=== PATIENT | female | born 1955 | race Caucasian/White ===

== ENCOUNTER 2018-01-25 08:24 | Day surgery (SDC) | payer OTHER ==
[~2018-01-25 08:24] MED LIST: LISINOPRIL10 MG PO; SYNTHROID100 MCG PO; ZOCOR5 MG PO
== END 2018-01-26 12:50 | disposition home or self-care (01) ==
LOC: CIR.AMB 08:24
DX: N95.0 Postmenopausal bleeding (principal)

== ENCOUNTER 2018-05-26 07:00 | Day surgery (SDC) | payer OTHER ==
[~2018-05-26] VITALS: Ht 162.6 cm; Wt 103.4 kg
[2018-05-27] MEDS ORDERED: PERCOCET 5-3251 EACH PO (09:31)
== END 2018-05-27 09:28 | disposition home or self-care (01) ==
LOC: MEDJ 07:00 → SURG 07:00 → CIR.AMB 07:00 → SURG 08:00 → EDSTATUS 08:00 → O/R 10:21 → SURG 10:21 → O/R 13:55 → CIR.AMB 05-27 07:47 → SURG 05-27 10:58 → O/R 05-27 10:58
DX: E04.1 Nontoxic single thyroid nodule (principal)

== ENCOUNTER 2019-10-21 08:00 | Inpatient (IN) | payer OTHER ==
[~2019-10-21] VITALS: Ht 162.6 cm; Wt 103.4 kg
[~2019-10-21 08:00] MED LIST changes: +PERCOCET 5-3251 EACH PO; +ZOCOR40 MG PO; -ZOCOR5 MG PO
[2019-10-27] MEDS ORDERED: LEVO-T150 MCG PO (08:18)
[2019-10-27] MEDS ORDERED: ZESTORETIC 10-1 EACH PO (08:19)
[2019-10-27] MEDS ORDERED: ROSUVASTATIN CA20 MG (08:19)
== END 2019-10-29 15:41 | disposition home or self-care (01) | DRG 743 ==
LOC: SURH 10-26 08:00 → O/R 10-26 08:00 → OB/GYN 10-26 11:50 → SURH 10-26 19:15 → OB/GYN 10-26 19:34
PROVIDERS: ADMIT Obstetrics & Gynecology Obstetrics
PROC: 0UT10ZZ Resection of Left Ovary, Open Approach (ICD-10-PCS; 2019-10-26)
PROC: 0UB60ZZ Excision of Left Fallopian Tube, Open Approach (ICD-10-PCS; 2019-10-26)
PROC: 0UT90ZZ Resection of Uterus, Open Approach (ICD-10-PCS; principal; 2019-10-26 19:15)
DX: N72 Inflammatory disease of cervix uteri (principal); D25.1 Intramural leiomyoma of uterus; N83.292 Other ovarian cyst, left side

== ENCOUNTER 2021-06-17 13:19 | Outpatient (CLI) | payer OTHER ==
[~2021-06-17 13:19] MED LIST changes: +LEVO-T150 MCG PO; +ROSUVASTATIN CA20 MG; +ZESTORETIC 10-1 EACH PO
== END 2021-06-17 13:21 | disposition home or self-care (01) ==
LOC: NUCLEAR 13:19
PROVIDERS: ATTEND Orthopaedic Surgery
DX: M81.0 Age-related osteoporosis without current pathological fracture (principal)

== ENCOUNTER 2021-07-25 12:06 | Outpatient (CLI) | payer OTHER | END 2021-07-25 12:25 | disposition home or self-care (01) | LOC: RAD 12:06 | PROVIDERS: ATTEND Orthopaedic Surgery | DX: M25.551 Pain in right hip (principal); M25.552 Pain in left hip; M25.562 Pain in left knee; M25.561 Pain in right knee ==